=== PATIENT | female | born 1985 | race African-American/Black ===

== ENCOUNTER 2017-04-02 18:15 | Emergency (ER) | payer OTHER ==
--- NOTE | 2017-04-02 19:38 | ED Physician Documentation ---
PD HPI SKIN - Stated complaint Stated Complaint: LT LEG BUMP - Chief complaint Chief Complaint: Wound - History obtained from History obtained from: Patient - History of Present Illness Timing - onset: Other (She noticed a painless lump on the inside of her left thigh while showering today. She had never noticed it before.) Review of Systems Constitutional: denies: Fever, Chills Throat: denies: Dental pain / toothache, Sore throat Cardiac: denies: Chest pain / pressure, Palpitations PD PAST MEDICAL HISTORY - Past Medical History Past Medical History: No - Past Surgical History Past Surgical History: No - Present Medications Home Medications: Ambulatory Orders Medication Instructions Recorded Confirmed No Known Home Medications [No 04/02/17 04/02/17 Known Home Medications] - Allergies Allergies/Adverse Reactions: Allergies Allergy/AdvReac Type Severity Reaction Status Date / Time nickel Allergy Rash Verified 04/02/17 18:27 Penicillins Allergy Rash Verified 04/02/17 18:27 - Social History Does the pt smoke?: No Smoking Status: Never smoker Does the pt drink ETOH?: No Does the pt have substance abuse?: No - Immunizations Immunizations are current?: Yes - POLST Patient has POLST: No PD ED PE NORMAL - Vitals Vital signs reviewed: Yes - General General: Alert and oriented X 3, No acute distress - Extremities Extremities: Other (Examination done with Caro GRIFFIN present in [facility]. On the inside of the upper thigh on the left there is a nontender mobile soft tissue mass that is actually fairly large.) - Neuro Neuro: Alert and oriented X 3, Normal speech - Psych Psych: Normal mood, Normal affect Results - Vitals Vitals: Vital Signs - 24 hr 04/02/17 18:24 Temperature 36.9 C Heart Rate 64 Respiratory 18 Rate Blood Pressure 133/88 H O2 Saturation 100 Oxygen O2 Source Room air PD MEDICAL DECISION MAKING - ED course ED course: 31-year-old woman with a mobile painless soft tissue mass in the left upper thigh medially, lipoma is suspected, but advised to follow-up tomorrow with her flight surgeon for evaluation and potential ultrasound. Departure - Departure Disposition: 01 Home, Self Care Clinical Impression: Soft tissue mass Condition: Good Record reviewed to determine appropriate education?: Yes Comments: As we discussed, I suspect this is a lipoma which is a benign fatty tumor under the skin. Report to your flight surgeon tomorrow for further evaluation and treatment, potentially an ultrasound. Your blood pressure was elevated today on check into the emergency department. This does not mean that you have hypertension, it is a common phenomenon to come to the emergency department and have elevated blood pressure. I recommend that she see your primary care physician within the week to have it rechecked when you are feeling better.
[2017-04-02 19:48] VITALS: BP 136/84
== END 2017-04-02 19:48 | disposition home or self-care (01) ==
LOC: ED 18:15
DX: R22.42 Localized swelling, mass and lump, left lower limb (principal); R03.0 Elevated blood-pressure reading, without diagnosis of hypertension
CPT/HCPCS: 99283

== ENCOUNTER 2017-05-25 06:49 | Day surgery (SDC) | payer OTHER ==
[2017-05-25] MEDS ORDERED: ceFAZolin 2 GM/50 ML 0 GM/0 ML BAG IV ONE (07:15)
[2017-05-25 07:32] LABS: HCG UR QUAL NEGATIVE
[2017-05-25] MEDS ORDERED: LACTATED RINGERS 1,000 ML IV ONE (07:46)
[2017-05-25] MEDS ORDERED: CLINDAMYCIN 600 MG/50 ML 50 ML IV ONE (08:28)
[2017-05-25] MEDS ORDERED: LIDOCAINE-MPF 2% 5 ML VIAL IM ONE (09:45)
[2017-05-25] MEDS ORDERED: ONDANSETRON 4 MG/2 ML VIAL IVP ONE (09:45)
[2017-05-25] MEDS ORDERED: PROPOFOL 200 MG/20 ML VIAL IVP ONE (09:45)
[2017-05-25] MEDS ORDERED: DEXAMETHASONE 4 MG/ML VIAL IVP ONE (09:45)
[2017-05-25] MEDS ORDERED: MIDAZOLAM 2 MG/2 ML VIAL IVP ONE (09:45)
[2017-05-25] MEDS ORDERED: KETOROLAC 30 MG/ML VIAL IVP ONE (09:45)
[2017-05-25] MEDS ORDERED: fentaNYL 100 MCG/2 ML VIAL IVP ONE (09:45)
[2017-05-25] MEDS ORDERED: BUPIVACAINE 0.5% PF 30 ML VIAL INFIL ONE ×2 (09:52→10:50)
[2017-05-25] MEDS ORDERED: LIDOCAINE 1%-EPI 1:100000 30 ML MDV SUBQ ONE ×2 (09:52→10:50)
[2017-05-25 13:01] VITALS: BP 118/72
--- NOTE | 2017-05-25 18:24 | OPERATIVE REPORT ---
DATE OF SURGERY: 05/25/2017 00:00:00 PREOPERATIVE DIAGNOSIS: Left upper inner thigh mass. POSTOPERATIVE DIAGNOSIS: Left upper inner thigh mass. SURGEON: Allison Chaves MD INDICATION FOR PROCEDURE: This is a 31-year-old female who presented to my office, referred for a left thigh mass. She had an MRI performed of this structure, which demonstrated non enhancement without vascular involvement. It appeared to be cystic in nature and of unknown etiology. DESCRIPTION OF PROCEDURE: After obtaining informed consent from the patient, she was brought into the operating room and positioned on the operating table in the supine position, taking note of pressure points. She was intubated by Anesthesia. She was administered perioperative antibiotics. She was prepped and draped in the usual sterile fashion and a time-out was taken according to protocol. The left leg was positioned in the frogleg position. A longitudinally oriented incision was created overlying the palpable inner thigh mass approximately 6 cm in length. This was deepened down through the subcutaneous tissue to the abductor muscles. There was a superficial vein encountered during this process, which was dissected out of the field and protected during dissection. The muscle belly was fully exposed in the area of the visible underlying mass. The muscle belly was split along its fibers until the cystic structure was encountered. This was noted to be firm and somewhat adherent, especially medially, to the adjacent muscle. Careful dissection was performed in order to circumferentially dissect the structure from the surrounding muscular tissue. Most of this dissection was performed bluntly with the electrocautery. Eventually, the cystic mass was completely excised. There was some spillage of clear gelatinous material during this process; however, the structure otherwise remained intact. It was then passed off as a specimen. The cavity was then packed. The surgeon and fleet administrative assistant changed their gloves. The cavity was then irrigated with sterile water. There was a small amount of muscular bleeding, which was controlled with electrocautery. Hemostasis was then noted to be achieved. A 15 Maltese round AJITH drain was then inserted through a separate stab incision into the wound cavity due to the depth of the dissection. This was sutured into place with 3-0 nylon. The abductor muscles were then reapproximated using 2-0 Vicryl. The subcutaneous tissue was closed in layers with 3-0 interrupted Vicryl. The skin incision was closed with a running 4-0 Monocryl. Dermabond was then applied. A Maggy Tegaderm, and Colton wrap were subsequently applied. The patient was extubated and taken to the recovery room in stable condition. COMPLICATIONS: None. SPECIMEN: Left thigh mass. ESTIMATED BLOOD LOSS: 50 mL. JOB #: [id number] EXT JOB #:[id number] MTDD
== END 2017-05-25 06:50 | disposition home or self-care (01) ==
LOC: SDS 06:49
PROVIDERS: ATTEND Surgery
PROC: 0KBQ0ZZ Excision of Right Upper Leg Muscle, Open Approach (ICD-10-PCS; principal; 2017-05-25 08:30)
DX: D21.22 Benign neoplasm of connective and other soft tissue of left lower limb, including hip (principal)
CPT/HCPCS: 27339; 81025; J7120

== ENCOUNTER 2019-06-10 20:47 | Emergency (ER) | payer OTHER ==
[2019-06-10] MEDS ORDERED: DOXYCYCLINE 100 MG TABLET PO STA (21:56)
--- NOTE | 2019-06-10 21:58 | ED Physician Documentation ---
PD HPI HEENT - Stated complaint Stated Complaint: LT EAR PX, HEAD PRESSURE - Chief complaint Chief Complaint: Heent - History obtained from History obtained from: Patient - History of Present Illness Timing - onset: Other (She's been sick for 3 weeks with cough and cold, but over the last few days has developed severe left-sided sinus pain with radiation to the left ear and some decreased hearing in the left ear. Some tactile fevers but nothing measured. No recent travel.) Review of Systems Constitutional: denies: Fever, Chills Ears: reports: Ear pain Nose: reports: Rhinorrhea / runny nose, Congestion, Sinus pressure / pain Throat: denies: Sore throat Respiratory: reports: Cough. denies: Dyspnea PD PAST MEDICAL HISTORY - Past Medical History Past Medical History: No Cardiovascular: None Respiratory: None Endocrine/Autoimmune: None GI: None : None HEENT: Chronic vision loss Psych: None Musculoskeletal: None Derm: None - Past Surgical History Past Surgical History: No HEENT: Other - Present Medications Home Medications: Ambulatory Orders Medication Instructions Recorded Confirmed Multivitamin [Multivitamins] 1 05/25/17 Doxycycline Hyclate 100 mg PO BID #20 capsule 06/10/19 Guaifenesin/Pseudoephedrne HCl 1 each PO BID PRN #20 tab.er.12h 06/10/19 [Mucinex D ER 600-60 mg Tablet] Mometasone Furoate [Nasonex] 1 spray NS BID #1 spray.pump 06/10/19 - Allergies Allergies/Adverse Reactions: Allergies Allergy/AdvReac Type Severity Reaction Status Date / Time nickel Allergy Rash Verified 06/10/19 20:55 Penicillins Allergy Rash Verified 06/10/19 20:55 - Social History Does the pt smoke?: No Smoking Status: Never smoker Does the pt drink ETOH?: No Does the pt have substance abuse?: No - Immunizations Immunizations are current?: Yes - POLST Patient has POLST: No PD ED PE NORMAL - Vitals Vital signs reviewed: Yes - General General: Alert and oriented X 3, No acute distress - HEENT HEENT: Other (Swollen turbinates on the left with maxillary sinus tenderness on the left. The TM is normal on the left but bulging i.e. it is bulging but without fluid behind it. The right TM is normal, the oropharynx is normal.) - Neck Neck: Supple, no meningeal sign, No bony TTP - Cardiac Cardiac: RRR, No murmur - Respiratory Respiratory: No respiratory distress, Clear bilaterally - Abdomen Abdomen: Non tender - Neuro Neuro: Alert and oriented X 3, Normal speech Results - Vitals Vitals: Vital Signs - 24 hr 06/10/19 20:56 Temperature 37.2 C Heart Rate 100 Respiratory 14 Rate Blood Pressure 130/80 O2 Saturation 98 Oxygen O2 Source Room air PD MEDICAL DECISION MAKING - ED course ED course: 33-year-old woman with longstanding symptoms which merit IDSA criteria for treatment for sinusitis. Penicillin/amoxicillin was avoided given allergy to same. Departure - Departure Disposition: Home, Self Care Clinical Impression: Sinusitis Qualifiers: Sinusitis location: maxillary Chronicity: acute Recurrence: non-recurrent Qualified Code(s): J01.00 - Acute maxillary sinusitis, unspecified Condition: Good Record reviewed to determine appropriate education?: Yes Instructions: ED Sinusitis Abx Tx Prescriptions: Doxycycline Hyclate 100 mg PO BID #20 capsule Guaifenesin/Pseudoephedrne HCl [Mucinex D ER 600-60 mg Tablet] 1 each PO BID PRN #20 tab.er.12h PRN Reason: congestion Mometasone Furoate [Nasonex] 1 spray NS BID #1 spray.pump Comments: Call your doctor to arrange a follow-up appointment, make the next available appointment. In the interim, return anytime if worse or if new symptoms develop.
[2019-06-10 22:28] VITALS: BP 126/90
== END 2019-06-10 22:35 | disposition home or self-care (01) ==
LOC: ED 20:47
DX: J01.00 Acute maxillary sinusitis, unspecified (principal)
CPT/HCPCS: 99283; 99284; A9270